=== PATIENT | female | born 1945 | race Caucasian/White ===

== ENCOUNTER 2022-11-03 10:20 | Emergency (ER) | payer MEDICARE, SELFPAY ==
[2022-11-03 10:30] VITALS: BP 117/73; PULSE 75; RESP 16; TEMP 36.5; O2SAT 95; BMI 26.1
--- NOTE | 2022-11-03 10:36 | DI.RAD.S_ITS ---
PROCEDURE: XR WRIST RT MIN 3V INDICATIONS: fall TECHNIQUE: 4 views of the wrist were acquired. COMPARISON: None. FINDINGS: Bones: Minimally displaced intra-articular fracture of the distal radius with comminution. There is mild dorsal tilting of the distal radial articular surface. No suspicious bony lesions. Severe degenerative changes are seen at the 1st carpometacarpal joint with subchondral sclerosis and marginal osteophyte formation. There is generalized osteopenia. Scaphoid view: Intact scaphoid. Soft tissues: Chondrocalcinosis. Soft tissue edema surrounding the wrist. IMPRESSION: Mildly impacted comminuted intra-articular fracture of the distal radius. Approved by: Andrés Harley M.D. on 11/03/2022 at 11:05
--- NOTE | 2022-11-03 11:12 | ED_ITS ---
HPI - Extremity Injury (Upper) <Vandana Barrientos PA-C - Last Filed: 11/03/22 11:55> General Chief Complaint: Extremity Injury, Upper Stated Complaint: fall, R wrist injury Time Seen by Provider: 11/03/22 10:29 Source: patient Mode of arrival: Ambulatory History of Present Illness HPI narrative: Patient is a 77-year-old female with atrial fibrillation, taking Eliquis, who fell down the front steps today landing on her right wrist. She denies hitting her head. She states only area that hurts is her right wrist. She states that she caught herself with her right arm. She denies any pain in her right shou lder. She denies any numbness and reports good range of motion of her right fingers, but does note there is some swelling. She denies any head pain, hip pain or right shoulder pain. Related Data Allergies Allergy/AdvReac Type Severity Reaction Status Date / Time No Known Drug Allergies Allergy Verified 11/03/22 10:30 Review of Systems <Vandana Barrientos PA-C - Last Filed: 11/03/22 11:55> Review of Systems Narrative: per HPI Patient History <Vandana Barrientos PA-C - Last Filed: 11/03/22 11:55> Social History Smoking Status: Never smoker Smoking Status: Never smoker Substance Use Type: does not use Exam <Vandana Barrientos PA-C - Last Filed: 11/03/22 11:55> Initial Vital Signs Initial Vital Signs: Vital Signs Temperature 97.7 F 11/03/22 10:30 Pulse Rate 75 11/03/22 10:30 Respiratory Rate 16 11/03/22 10:30 Blood Pressure 117/73 11/03/22 10:30 Pulse Oximetry 95 11/03/22 10:30 Oxygen Delivery Method Room Air 11/03/22 10:30 GENERAL: 77 year old patient appears stated age. Well-developed patient, in no acute distress. HEAD: Atraumatic. Normocephalic, no evidence of bruising, swelling or abrasion over patient's head CARDIOVASCULAR: Regular rate and rhythm without murmurs, gallops, or rubs. RESPIRATORY: Speaking comfortably in complete sentences, no increased work of breathing, clear to auscultation. Breath sounds equal bilaterally. No wheezes, rales, or rhonchi. EXTREMITIES: Edema and step-off of right wrist over lateral proximal aspect of right wrist, patient has point tenderness in lateral proximal aspect, patient is able to do thumb to finger opposition in all fingers, she reports good sensation, radial right pulse is 2 +equal to left radial pulse, patient has limited wrist flexion and extension secondary to pain. Nontender to palpation of right elbow, right shoulder NEURO: AOx3. SKIN: No rash or erythema of visible areas <DO Vinay Devine Last Filed: 11/03/22 16:06> Initial Vital Signs Initial Vital Signs: Vital Signs Temperature 97.7 F 11/03/22 10:30 Pulse Rate 75 11/03/22 10:30 Respiratory Rate 16 11/03/22 10:30 Blood Pressure 117/73 11/03/22 10:30 Pulse Oximetry 95 11/03/22 10:30 Oxygen Delivery Method Room Air 11/03/22 10:30 Course <Vandana Barrientos PA-C - Last Filed: 11/03/22 11:55> Orders Ordered: ED Orders 11/03/22 10:36 XR wrist RT min 3V Stat Vital Signs Vital signs: Vital Signs - 8 hr 11/03/22 10:30 Temperature 97.7 F Pulse Rate 75 Respiratory Rate 16 Blood Pressure 117/73 Pulse Oximetry 95 Oxygen Delivery Method Room Air <DO Vinay Devine Last Filed: 11/03/22 16:06> Orders Ordered: ED Orders 11/03/22 10:36 XR wrist RT min 3V Stat Vital Signs Vital signs: Vital Signs - 8 hr 11/03/22 10:30 Temperature 97.7 F Pulse Rate 75 Respiratory Rate 16 Blood Pressure 117/73 Pulse Oximetry 95 Oxygen Delivery Method Room Air MDM - Extremity Injury (Upper) <JOSE Astorga Last Filed: 11/03/22 11:55> Imaging Data Xray Wrist RT: My Impression: Reviewed with Dr. Klein, Right distal radial fracture Radiologist's Impression: PROCEDURE:? XR WRIST RT MIN 3V ? INDICATIONS: fall ? TECHNIQUE:? 4 views of the wrist were acquired.? ? COMPARISON:? None. ? FINDINGS:? ? Bones:? Minimally displaced intra-articular fracture of the distal radius with comminution.? There is mild dorsal tilting of the distal radial articular surface.? No suspicious bony lesions.? Severe degenerative changes are seen at the 1st carpometacarpal joint with subchondral sclerosis and marginal osteophyte formation.? There is generalized osteopenia. ? Scaphoid view:? Intact scaphoid. ? Soft tissues:? Chondrocalcinosis.? Soft tissue edema surrounding the wrist. ? IMPRESSION:? Mildly impacted comminuted intra-articular fracture of the distal radius. ? ? ? Approved by: Andrés Harley M.D. on 11/03/2022 at 11:05? [facility] Narrative Medical decision making narrative: Patient is a 77-year-old female presenting for evaluation of right wrist pain. Right wrist x-ray showed fracture of distal radial. Reviewed images with Dr. Klein. Sugar-tong splint recommended of right arm. Multiple etiologies for patient's symptoms considered including, but not limited to: fracture, sprain Prior Charts reviewed: none present Imaging reviewed: Xray right wrist Recommend follow up with Orthopedic for further treatment and evaluation. [facility] [phone]. Keep right arm splinted until evaluation. May use ibuprofen and tylenol if no contraindications for pain. Findings and discharge diagnosis discussed with patient followed by verbalization of understanding Return precautions discussed with patient/family whom verbalize understanding of diagnosis and plan Discharge Plan Departure Patient Disposition: Home Clinical Impression: Fracture of wrist Instructions: DI for Distal Radius Fracture Activity Restrictions/Additional Instructions: Please call [facility] at [phone] for follow up in evaluation and treatment of your right wrist fracture. I recommend you keep splint on at all times. You may take Tylenol or ibuprofen if no contraindications for pain. Bones take approximately 6 weeks to heal, so you will continue to experience some discomfort as your bone is healing. Please rest and keep elevated when at rest. Please loosen wrap if your fingers develop numbness. If this does not relieve symptoms or there are symptoms of worsening pain, discoloration or other concerning signs, please follow up in the ER for re-evaluation. Stand Alone Forms: Patient Portal/API <Jad Klein DO - Last Filed: 11/03/22 16:06> [facility] ED Attending Mónica Attestation: I was immediately available in the department for consultation. Documentation has been reviewed. I agree with assessment and plan.
== END 2022-11-03 11:57 | disposition home or self-care (01) ==
PROVIDERS: Emergency Provider Physician Assistant
DX: S52.571A Other intraarticular fracture of lower end of right radius, initial encounter for closed fracture (principal); W10.9XXA Fall (on) (from) unspecified stairs and steps, initial encounter
CPT/HCPCS: 29125; 73110; 99282; 99283